=== PATIENT | male | born 1960 | race African-American/Black ===

== ENCOUNTER 2019-07-12 02:39 | Emergency (ER) | payer SELFPAY ==
[~2019-07-12] VITALS: Ht 195.6 cm; Wt 90.7 kg
[2019-07-12 02:45] VITALS: BP 145/88
--- NOTE | 2019-07-12 02:45 | NUR ---
ED Nurse Note: pt brought in by [facility] for medical clearance. ao4. nad. vss. refuses to state complaint. non compliant. refused to speak with ermd.
[2019-07-12 03:00] VITALS: BP 145/88
--- NOTE | 2019-07-12 03:00 | NUR ---
ER DISCHARGE NOTE: Patient is cleared to be discharged per ERMD, pt is aox4, on room air, with stable vital signs. pt under lasd custody pt was given dc and prescription instructions, pt was able to verbalize understanding, pt id band removed. pt is able to ambulate with steady gait. pt took all belongings.
--- NOTE | 2019-07-12 03:33 | Emergency Room Report ---
History of Present Illness General Chief Complaint: Medical Clearance Source: Law Enforcement Present Illness HPI 59-year-old male presents ED for evaluation. Patient is here in police custody. Requiring longterm clearance. Patient was recently diagnosed with scabies and prescribed permethrin cream. Patient was subsequently arrested. Upon arrival patient has no complaints. Not answering questions. Denies pain. Denies any itchiness. No other aggravating relieving factors. Denies any other associated symptoms Allergies: Coded Allergies: No Known Allergies (Unverified , 07/12/19) Patient History Past Medical History: none Past Surgical History: none Pertinent Family History: none Social History: Denies: smoking, alcohol use, drug use Immunizations: UTD Reviewed Nursing Documentation: PMH: Agreed; PSxH: Agreed Nursing Documentation-PMH Past Medical History: No Stated History Review of Systems All Other Systems: negative except mentioned in HPI Physical Exam Vital Signs Date Time Temp Pulse Resp B/P (MAP) Pulse Ox O2 Delivery O2 Flow Rate FiO2 07/12/19 02:42 98.2 79 20 145/88 (107) 100 Room Air Sp02 EP Interpretation: reviewed, normal General Appearance: no apparent distress, alert, GCS 15, non-toxic, other - agitated Head: normocephalic, atraumatic Eyes: bilateral eye normal inspection, bilateral eye PERRL ENT: hearing grossly normal Neck: full range of motion, supple/symm/no masses Respiratory: normal inspection, speaking full sentences Cardiovascular #1: normal inspection Cardiovascular #2: 2+ carotid (R), 2+ carotid (L), 2+ radial (R), 2+ radial (L) , 2+ dorsalis pedis (R), 2+ dorsalis pedis (L) Gastrointestinal: normal inspection, non-distended, no guarding, no rebound Rectal: deferred Genitourinary: normal inspection Musculoskeletal: back normal, gait/station normal, normal range of motion, non- tender Neurologic: alert, oriented x3, responsive, motor strength/tone normal, sensory intact, speech normal, other - agitated Psychiatric: other - agitated Reflexes: 3+ bicep (R), 3+ bicep (L), 3+ tricep (R), 3+ tricep (L), 3+ knee (R) , 3+ knee (L) Skin: other - patient refused exam Lymphatic: no adenopathy Medical Decision Making Diagnostic Impression: Primary Impression: Medical clearance for incarceration ER Course Hospital Course 59-year-old male presents to ED for and longterm clearance. recently diagnosed with scabies Clinical course Patient placed on chair. Handcuffs. Refuses to answer any questions. Refuses examination. Patient has stable vitals. Does not appear to be in distress. Can be medically cleared. officers understand that patient will require his prescription to be filled Diagnosis - medical clearance for incarceration stable and discharged into police custody Last Vital Signs Date Time Temp Pulse Resp B/P (MAP) Pulse Ox O2 Delivery O2 Flow Rate FiO2 07/12/19 03:00 98.2 79 20 145/88 100 Room Air Status: improved Disposition: HOME, SELF-CARE Condition: Stable Scripts No Active Prescriptions or Reported Meds Referrals: NOT CHOSEN IPA/,REFERRING (PCP) Joe Bergeron [facility]. [facility] Departure Forms: Long-Term Clearance Patient Instructions: Contact Precautions, [id number] Additional Instructions: take your prescribed medications as directed. Pedro Dutton MD Jul 12, 2019 03:33
== END 2019-07-12 03:00 | disposition home or self-care (01) ==
LOC: EMR 02:53
DX: Z02.89 Encounter for other administrative examinations (principal)
CPT/HCPCS: 99281